=== PATIENT | male | born 1955 | race Two or more races ===

== ENCOUNTER 2017-09-12 16:06 | Emergency (ER) | payer OTHER ==
[~2017-09-12] VITALS: Ht 182.9 cm; Wt 86.2 kg
[2017-09-12 16:06] VITALS: BP 151/87
[2017-09-12] MEDS ORDERED: BRIM5DRO2 OP (16:34)
== END 2017-09-12 17:57 | disposition home or self-care (01) ==
LOC: ER 16:12
DX: S00.81XA Abrasion of other part of head, initial encounter (principal); Y04.0XXA Assault by unarmed brawl or fight, initial encounter; Y93.89 Activity, other specified; Y92.89 Other specified places as the place of occurrence of the external cause; Y99.8 Other external cause status
CPT/HCPCS: A4606; Z7502; Z7610